=== PATIENT | male | born 1970 | race Caucasian/White ===

== ENCOUNTER 2017-02-08 23:41 | Emergency (ER) | payer SELFPAY ==
[~2017-02-08] VITALS: Ht 177.8 cm; Wt 108.9 kg
[2017-02-09 01:16] LABS: INR 1.07 (0.9-1.15); Partial Thromboplastin Time 27.7 sec (22.64-33.71)
[2017-02-09 01:20] LABS: Albumin 3.7 g/dL (3.4-5.0); Anion Gap 8 (5-15); Aspartate Aminotransferase 12 U/L (15-37); BUN/Creatinine Ratio 11.1; Blood Urea Nitrogen 10 mg/dL (7-18); Carbon Dioxide 23 mmol/L (21-32); Chloride 109 mmol/L (98-107); GFR African American 116 mL/min; GFR Non-African American 96 mL/min; Glucose 108 mg/dL (74-106); Magnesium 2.3 mg/dL (1.6-2.6); Sodium 140 mmol/L (136-145)
[2017-02-09 01:27] LABS: Alkaline Phosphatase 81 U/L (45-117); Bilirubin, Total 0.5 mg/dL (0.2-1.0); Total Protein 7.7 g/dL (6.4-8.2)
[2017-02-09 01:28] LABS: B-Type Natriuretic Peptide 36.08 pg/mL (0-100)
[2017-02-09 01:33] LABS: Basophils # (auto) 0 uL; Basophils % (auto) 0.3 % (0.0-2.0); DEFINITIVE VIEW TRANSMISSION; Eosinophils # (auto) 0.1 uL; Eosinophils % (auto) 1.7 % (0.0-7.0); Hematocrit 50.1 % (41.0-53.0); Hemoglobin 16.7 g/dL (13.5-17.5); Lymphocytes # (auto) 2.5 uL; Lymphocytes % (auto) 38.3 % (10.0-50.0); Mean Corpuscular Hgb Conc. 33.3 g/dL (32.0-36.0); Mean Corpuscular Volume 101.8 fL (80.0-100.0); Mean Platelet Volume 8.7 fL (7.4-10.4); Monocytes # (auto) 0.4 uL; Monocytes % (auto) 6.2 % (0.0-12.0); Neutrophils # (auto) 3.5 uL; Neutrophils % (auto) 53.5 % (37.0-80.0); Platelet Count (auto) 239 10^3/uL (140-450); Red Cell Distribution Width 13.5 % (11.6-16.0); White Blood Cell 6.6 10^3/uL (4.4-10.8)
[2017-02-09 04:56] VITALS: BP 132/82
== END 2017-02-09 02:00 | disposition left against medical advice (07) ==
LOC: ER 23:57
DX: R07.89 Other chest pain (principal); R42 Dizziness and giddiness; R20.0 Anesthesia of skin; Z53.21 Procedure and treatment not carried out due to patient leaving prior to being seen by health care provider
CPT/HCPCS: 36415; 70450; 71020; 80053; 82962; 83735; 83880; 84443; 84484; 85025; 85610; 85730; 93005